=== PATIENT | female | born 1950 | race Caucasian/White ===

== ENCOUNTER 2020-09-07 11:45 | Emergency (ER) | payer MEDICARE | END 2020-09-07 15:20 | disposition home or self-care (01) | LOC: FER 11:45 | DX: S00.03XA Contusion of scalp, initial encounter (principal); I10 Essential (primary) hypertension; W01.10XA Fall on same level from slipping, tripping and stumbling with subsequent striking against unspecified object, initial encounter; Y92.009 Unspecified place in unspecified non-institutional (private) residence as the place of occurrence of the external cause | CPT/HCPCS: 70450; 72040; 72125 ==

== ENCOUNTER 2021-08-25 11:51 | Emergency (ER) | payer MEDICARE ==
[2021-08-25 13:21] LABS: BASOPHIL 0.4 % (0-2); EOSINOPHIL 0.4 % (0-7); HCT 38.9 % (37.0-47.0); LYMPHOCYTE 31.3 % (15-48); MCH 19.9 pg (25.0-31.0); MCHC 30.8 g/dL (32.0-36.0); MCV 64.6 fL (78.0-100.0); MONOCYTE 11.1 % (0-12); MPV 10.6 fL (6.0-9.5); NEUTROPHIL 56.4 % (41-80); NRBC 0; PLT 143 K/uL (150-400); RBC 6.02 M/uL (4.20-5.40); RDW 15.9 % (11.5-14.0); WBC 2.6 K/uL (4.0-10.5)
[2021-08-25 13:38] LABS: ALBUMIN 4.1 g/dL (3.4-5.0); BILIRUBIN - TOTAL 0.7 mg/dL (0.2-1.0); BUN/CREAT RATIO (CALC) 16.9 RATIO; CREATININE 0.77 mg/dL (0.51-0.95); GLOBULIN (CALCULATION) 3.2 g/dL; POTASSIUM 3.4 mmol/L (3.5-5.1); TOTAL PROTEIN 7.3 g/dL (6.4-8.2)
[2021-08-25] MEDS ORDERED: PHENERGAN25 M1 PO (14:11)
== END 2021-08-25 16:20 | disposition home or self-care (01) ==
LOC: FER 11:51
PROVIDERS: Internal Medicine
DX: R63.8 Other symptoms and signs concerning food and fluid intake (principal); R11.0 Nausea; C67.9 Malignant neoplasm of bladder, unspecified; U07.1 COVID-19; I10 Essential (primary) hypertension; Z88.1 Allergy status to other antibiotic agents; Z88.6 Allergy status to analgesic agent; Z79.899 Other long term (current) drug therapy; Z28.311 Partially vaccinated for COVID-19
CPT/HCPCS: 36415; 80053; 85025; J1100; J2550; J3475; J7120